=== PATIENT | male | born 1985 | race African-American/Black ===

== ENCOUNTER 2022-11-10 23:58 | Emergency (ER) | payer OTHER, SELFPAY ==
[2022-11-11] MEDS ORDERED: Diazepam 10 MG/2 ML SYRINGE ONE (01:37)
[2022-11-11] MEDS ORDERED: Ketorolac Tromethamine 30 MG/ML VIAL ONE (01:38)
[2022-11-11] MEDS ORDERED: Diazepam 5 MG TAB ONE (01:38)
== END 2022-11-11 02:02 | disposition home or self-care (01) ==
LOC: ERS 23:58
DX: S09.90XA Unspecified injury of head, initial encounter (principal); M54.50 Low back pain, unspecified; J45.909 Unspecified asthma, uncomplicated; V43.52XA Car driver injured in collision with other type car in traffic accident, initial encounter; Z79.899 Other long term (current) drug therapy
CPT/HCPCS: 72100; 96372; J1885; J3360